=== PATIENT | male | born 1950 | race Caucasian/White ===

== ENCOUNTER → 2016-08-24 | Outpatient (CLI) | payer MEDICARE, OTHER | LOC: NM 08-22 13:00 | DX: I20.9 Angina pectoris, unspecified (principal); R06.02 Shortness of breath; R00.2 Palpitations; R53.83 Other fatigue; R42 Dizziness and giddiness; R06.00 Dyspnea, unspecified; I10 Essential (primary) hypertension | CPT/HCPCS: ECHO; 78452; 93017; 93306; A9502; J2785 ==

== ENCOUNTER → 2020-10-30 | Outpatient (CLI) | payer MEDICARE | LOC: CT 10:04 | DX: C18.2 Malignant neoplasm of ascending colon (principal); C78.7 Secondary malignant neoplasm of liver and intrahepatic bile duct; R91.8 Other nonspecific abnormal finding of lung field | CPT/HCPCS: 71260; Q9967 ==

== ENCOUNTER → 2021-01-14 | Outpatient (CLI) | payer MEDICARE | LOC: CT 12:23 | DX: C18.2 Malignant neoplasm of ascending colon (principal); C78.7 Secondary malignant neoplasm of liver and intrahepatic bile duct; R91.8 Other nonspecific abnormal finding of lung field | CPT/HCPCS: 70470; 71260; Q9967 ==